=== PATIENT | male | born 1965 | race Caucasian/White ===

== ENCOUNTER → 2020-04-24 16:47 | Outpatient (CLI) | payer OTHER, SELFPAY ==
[2020-04-24 18:21] LABS: Prostate Specific Antigen Scrn 0.229 ng/mL (0.1-4.0)
[2020-04-30 11:16] LABS: Percent Free Testosterone 1.83 % (1.50-4.20); Testosterone Free 1.86 ng/dL (5.00-21.00); Testosterone Total 101.9 ng/dL (264.0-916.0)
== END ==
PROVIDERS: PCP Internal Medicine; Referring Provider Internal Medicine; Visit Provider Internal Medicine
DX: Z12.5 Encounter for screening for malignant neoplasm of prostate (principal); R73.02 Impaired glucose tolerance (oral); F32.9 Major depressive disorder, single episode, unspecified; F41.9 Anxiety disorder, unspecified; F43.9 Reaction to severe stress, unspecified
CPT/HCPCS: 36415; 83036; 84402; 84403; G0103

== ENCOUNTER → 2021-07-23 07:29 | Outpatient (CLI) | payer OTHER, SELFPAY ==
[2021-07-23 08:29] LABS: Hemoglobin A1C% w Est Avg Glu 5.6 % (4.0-6.0)
[2021-07-23 09:08] LABS: Alanine Aminotransferase 40 IU/L (<50); Albumin 4.5 g/dL (3.5-5.0); Albumin Globulin Ratio 1.9 (1.0-2.8); Alkaline Phosphatase 52 U/L (38-126); Aspartate Aminotransferase 26 IU/L (17-59); BUN Creatinine Ratio 23.1 (6-22); Bilirubin Total 0.4 mg/dL (0.2-1.3); Blood Urea Nitrogen 18 mg/dL (9-20); Calcium 9.9 mg/dL (8.4-10.2); Carbon Dioxide 27 mmol/L (22-32); Chloride 103 mmol/L (98-107); Cholesterol 202 mg/dL (140-199); Estimated Glomerular Filt Rate > 60.0 mL/min (>60); Globulin 2.4 g/dL (1.7-4.1); Glucose 108 mg/dL (70-100); HDL Cholesterol 68 mg/dL (40-60); HEMOLYSIS < 15 (0-50); LDL Cholesterol Calculated 98 mg/dL (<100); Potassium 4.8 mmol/L (3.4-5.1); Sodium 138 mmol/L (137-145); Total Protein 6.9 g/dL (6.3-8.2); Triglycerides 181 mg/dL (35-150); Uric Acid 5.9 mg/dL (3.5-8.5)
[2021-07-23 09:39] LABS: Prostate Specific Antigen Scrn 0.462 ng/mL (0.1-4.0)
[2021-07-25 13:59] LABS: Fecal Immunochemical Test Negative (Negative)
== END ==
PROVIDERS: PCP Internal Medicine; Referring Provider Internal Medicine; Visit Provider Internal Medicine
DX: I10 Essential (primary) hypertension (principal); E78.2 Mixed hyperlipidemia; R73.02 Impaired glucose tolerance (oral); E66.9 Obesity, unspecified; M1A.9XX0 Chronic gout, unspecified, without tophus (tophi); Z12.11 Encounter for screening for malignant neoplasm of colon; Z12.5 Encounter for screening for malignant neoplasm of prostate
CPT/HCPCS: 36415; 80053; 80061; 82274; 83036; 84550; G0103

== ENCOUNTER → 2022-07-21 15:00 | Outpatient (CLI) | payer OTHER, SELFPAY ==
[2022-07-21 15:46] LABS: Alanine Aminotransferase 52 IU/L (<50); Albumin 4.7 g/dL (3.5-5.0); Albumin Globulin Ratio 1.5 (1.0-2.8); Alkaline Phosphatase 66 U/L (38-126); Aspartate Aminotransferase 36 IU/L (17-59); BUN Creatinine Ratio 20.2 (6-22); Bilirubin Total 0.4 mg/dL (0.2-1.3); Blood Urea Nitrogen 18 mg/dL (9-20); Calcium 9.8 mg/dL (8.4-10.2); Carbon Dioxide 27 mmol/L (22-32); Chloride 99 mmol/L (98-107); Cholesterol 224 mg/dL (140-199); Estimated Glomerular Filt Rate > 60 mL/min (>60); Globulin 3.1 g/dL (1.7-4.1); Glucose 92 mg/dL (70-100); HDL Cholesterol 67 mg/dL (40-60); HEMOLYSIS < 15 (0-50); LDL Cholesterol Calculated 113 mg/dL (<100); Sodium 137 mmol/L (137-145); Total Protein 7.8 g/dL (6.3-8.2); Triglycerides 219 mg/dL (35-150); Uric Acid 6.7 mg/dL (3.5-8.5)
[2022-07-21 16:15] LABS: Prostate Specific Antigen Scrn 0.775 ng/mL (0.1-4.0)
== END ==
PROVIDERS: PCP Internal Medicine; Referring Provider Internal Medicine; Visit Provider Internal Medicine
DX: Z12.5 Encounter for screening for malignant neoplasm of prostate (principal); E78.2 Mixed hyperlipidemia; I10 Essential (primary) hypertension; M1A.9XX0 Chronic gout, unspecified, without tophus (tophi)
CPT/HCPCS: 36415; 80053; 80061; 84550; G0103